=== PATIENT | female | born 1945 | race Caucasian/White ===

== ENCOUNTER 2016-12-12 00:34 | Emergency (ER) | payer MEDICARE, BC ==
[~2016-12-12] VITALS: Ht 170.2 cm; Wt 75.8 kg
[2016-12-12 01:43] LABS: BLOOD UREA NITROGEN 18 mg/dL (7-18)
[2016-12-12 02:27] VITALS: BP 126/65
== END 2016-12-12 02:39 | disposition home or self-care (01) ==
LOC: ED 02:33
DX: R00.2 Palpitations (principal)
CPT/HCPCS: 36415; 80048; 82040; 85025; 93005; 93970; 99285

== ENCOUNTER → 2020-05-13 | Outpatient (CLI) | payer MEDICARE, BC | END | disposition home or self-care (01) | LOC: CFH 12:28 | PROVIDERS: ATTEND Internal Medicine Cardiovascular Disease | DX: Z13.6 Encounter for screening for cardiovascular disorders (principal); I48.0 Paroxysmal atrial fibrillation; R06.02 Shortness of breath; E78.2 Mixed hyperlipidemia | CPT/HCPCS: 75571; 78452; 93017; A9502 ==